=== PATIENT | male | born 1980 | race Caucasian/White ===

== ENCOUNTER 2016-05-30 01:59 | Emergency (ER) | payer BC ==
[~2016-05-30] VITALS: Ht 170.2 cm; Wt 82.0 kg
[~2016-05-30 01:59] MED LIST: BACT800T5 PO
[2016-05-30 02:01] VITALS: BP 157/93; PULSE 95; RESP 15; TEMP 97.8; O2SAT 98
[2016-05-30] MEDS ORDERED: NOVORP2 SQ (02:22)
[2016-05-30] MEDS ORDERED: NOVONP2 SQ (02:22)
[2016-05-30] MEDS ORDERED: AMAR2TAB PO (02:29)
[2016-05-30] MEDS ORDERED: SODIUM CHLOR 0.9% 1000 ML INJ 1,000 ML IV ONE (02:45)
--- NOTE | 2016-05-30 03:07 | PD ---
HPI Chief Complaint: Diabetic Time Seen by Provider: 02:22 Travel History International Travel<30 days: No Contact w/Intl Traveler<30days: No Traveled to known affect area: No History of Present Illness HPI 35-year-old male presents emergency department complaining of abdominal pain. He states cramping really started today. His a history of abdominal cramping in the past. Symptoms are almost daily for him. He seen a doctor couple times one in the past. The symptoms were worse today. He's had fevers and chills with it. He's had nausea but no vomiting. No change in his bowel movements. No urinary changes. No history of abdominal surgery. Medical history significant diabetes and hypertension. He also actively uses IV drugs, heroin, methamphetamine, and cocaine. History Past Medical History Tetanus Vaccination: < 5 Years Social History Alcohol Use: Yes (rare) Tobacco Use: Yes (1ppd) Allergies-Medications (Allergen,Severity, Reaction): Coded Allergies: No Known Allergies (Unverified , 05/30/16) Reported Meds & Prescriptions Reported Meds & Active Scripts Active Reported Amaryl (Glimepiride) 2 Mg Tab 2 Mg PO BIDAC Novolin R Inj (Insulin Human Regular) 1,000 Unit/10 Ml Vial 2-12 Units SQ ACHS Max dose at bedtime:( )units; sugars less than 70,(0) units; sugars 150-199,(2)unit; sugars 200-249,(4)units; sugars 250-299,(7) units; sugars 300-349,(10)units; sugars greater than 349,(12)units Novolin N Inj (Insulin Human NPH) 1,000 Unit/10 Ml Vial 30 Units SQ BID Review of Systems Except as stated in HPI: all other systems reviewed are Neg Physical Exam Narrative GENERAL: Well-appearing 35 year-old man, no acute distress. SKIN: Focused skin assessment warm/dry. HEAD: Atraumatic. Normocephalic. EYES: Pupils equal and round. No scleral icterus. No injection or drainage. ENT: No nasal bleeding or discharge. Mucous membranes pink and moist. NECK: Trachea midline. No JVD. CARDIOVASCULAR: Regular rate and rhythm. No murmur appreciated. RESPIRATORY: No accessory muscle use. Clear to auscultation. Breath sounds equal bilaterally. GASTROINTESTINAL: Abdomen is flat and soft. He is a little bit of diffuse tenderness especially in the right. A little bit of guarding but no rebound. No peritonitis. Negative Stanley's. Liver feels like maybe a little bit enlarged but the liver edge is clearly palpable. MUSCULOSKELETAL: No obvious deformities. No edema. Data Data Last Documented VS Vital Signs Date Time Temp Pulse Resp B/P Pulse Ox O2 Delivery O2 Flow Rate FiO2 05/30/16 02:26 99 Room Air 05/30/16 02:01 97.8 95 15 157/93 Orders Complete Blood Count With Diff (05/30/16 02:39) Comprehensive Metabolic Panel (05/30/16 02:39) Lipase (05/30/16 02:39) Iv Access Insert/Monitor (05/30/16 02:39) Sodium Chlor 0.9% 1000 Ml Inj (Ns 1000 M (05/30/16 02:45) Blood Culture (05/30/16 02:39) Ct Abd/Pel W Iv Contrast(Rout) (05/30/16 ) Iohexol 350 Inj (Omnipaque 350 Inj) (05/30/16 04:35) Labs Laboratory Tests Test 05/30/16 03:50 White Blood Count 10.1 TH/MM3 Red Blood Count 4.85 MIL/MM3 Hemoglobin 14.6 GM/DL Hematocrit 41.7 % Mean Corpuscular Volume 86.0 FL Mean Corpuscular Hemoglobin 30.2 PG Mean Corpuscular Hemoglobin 35.1 % Concent Red Cell Distribution Width 13.1 % Platelet Count 246 TH/MM3 Mean Platelet Volume 9.6 FL Neutrophils (%) (Auto) 60.7 % Lymphocytes (%) (Auto) 25.8 % Monocytes (%) (Auto) 11.2 % Eosinophils (%) (Auto) 1.1 % Basophils (%) (Auto) 1.2 % Neutrophils # (Auto) 6.1 TH/MM3 Lymphocytes # (Auto) 2.6 TH/MM3 Monocytes # (Auto) 1.1 TH/MM3 Eosinophils # (Auto) 0.1 TH/MM3 Basophils # (Auto) 0.1 TH/MM3 CBC Comment DIFF FINAL Differential Comment Sodium Level 140 MEQ/L Potassium Level 3.6 MEQ/L Chloride Level 104 MEQ/L Carbon Dioxide Level 26.9 MEQ/L Anion Gap 9 MEQ/L Blood Urea Nitrogen 16 MG/DL Creatinine 0.92 MG/DL Estimat Glomerular Filtration 93 ML/MIN Rate Random Glucose 203 MG/DL Calcium Level 9.3 MG/DL Total Bilirubin 0.6 MG/DL Aspartate Amino Transf 12 U/L (AST/SGOT) Alanine Aminotransferase 20 U/L (ALT/SGPT) Alkaline Phosphatase 116 U/L Total Protein 7.8 GM/DL Albumin 4.1 GM/DL Lipase 467 U/L [facility] Medical Decision Making Medical Screen Exam Complete: Yes Emergency Medical Condition: Yes Interpretation(s) LABS: CBC is unremarkable. CMP remarkable for a glucose of [address] abdomen and pelvis: No definite acute abnormality seen. Mild compression deformity of T12, appears chronic. Differential Diagnosis Abdominal pain, vomiting, gastroparesis, hepatobiliary disease, pancreatitis, other Narrative Course Medical decision making INITIAL: This Is a 35-year-old man who presents to the emergency department complaining of Abdominal pain. He states his abdominal pain daily, especially when he eats too much that suggests gastritis or gastroparesis. He looks overall well. Does have some diffuse tenderness. He is actively using IV drugs was complaining of night sweats. He states is been ongoing for years. I don't see any other evidence of endocarditis. Vital signs are unremarkable. We 'll check labs, CT imaging, likely discharge. Diagnosis Primary Impression: Abdominal pain Additional Instructions: Take Reglan 30 minutes prior to meals for the next 2 weeks. Follow-up with your primary doctor in the next 2-3 days. Return to the emergency department in worsening abdominal pain, vomiting, or any other new or worsening symptoms. Med/Other Pt SpecificInfo: Prescription(s) given Scripts Metoclopramide (Reglan)10 Mg Tab10 Mg PO TIDAC #60 TAB Ref 0 Prov:Greg Eid MD 05/30/16 Disposition: 01 DISCHARGE HOME Condition: Stable Greg Eid MD May 30, 2016 03:07
[2016-05-30 03:58] LABS: AUTOMATED NEUTROPHIL # 6.1 TH/MM3 (1.8-7.7); BASOPHIL # 0.1 TH/MM3 (0-0.2); BASOPHIL % 1.2 % (0.0-2.0); EOSINOPHIL # 0.1 TH/MM3 (0-0.4); EOSINOPHIL % 1.1 % (0.0-4.0); HEMATOCRIT 41.7 % (39.0-51.0); HEMO FLAGS DIFF FINAL; LYMPH % 25.8 % (9.0-44.0); LYMPHOCYTE # 2.6 TH/MM3 (1.0-4.8); MEAN CORPUSCULAR HEMOGLOBIN 30.2 PG (27.0-34.0); MEAN CORPUSCULAR HGB CONC 35.1 % (32.0-36.0); MONO % 11.2 % (0.0-8.0); NEUT % 60.7 % (16.0-70.0); PLATELET COUNT 246 TH/MM3 (150-450); RED BLOOD COUNT 4.85 MIL/MM3 (4.50-5.90); RED CELL DISTRIBUTION WIDTH 13.1 % (11.6-17.2); WHITE BLOOD COUNT 10.1 TH/MM3 (4.0-11.0)
[2016-05-30 04:24] LABS: ALT (GPT) 20 U/L (12-78); ANION GAP 9 MEQ/L (5-15); AST (GOT) 12 U/L (15-37); BICARBONATE 26.9 MEQ/L (21.0-32.0); BLOOD UREA NITROGEN 16 MG/DL (7-18); CHLORIDE 104 MEQ/L (98-107); GLOMERULAR FILTRATION RATE 93 ML/MIN (>89); POTASSIUM 3.6 MEQ/L (3.5-5.1); SODIUM (NA) 140 MEQ/L (136-145)
[2016-05-30 04:26] LABS: ALKALINE PHOSPHATASE 116 U/L (45-117); TOTAL BILIRUBIN ADULT 0.6 MG/DL (0.2-1.0)
[2016-05-30] MEDS ORDERED: IOHEXOL 350 MG/ML 10 ML VIAL (for RAD DIAG) IV ONE (04:35)
--- NOTE | 2016-05-30 05:04 | RADRPT ---
EXAM DATE/TIME: 05/30/2016 04:30 [facility] COMPARISON: No previous studies available for comparison. INDICATIONS : Abdominal pain. IV CONTRAST: 100 cc Omnipaque 350 (iohexol) IV ORAL CONTRAST: No oral contrast ingested. RADIATION DOSE: 6.83 CTDIvol (mGy) MEDICAL HISTORY : Diabetes mellitus type 2. Hypertension. SURGICAL HISTORY : None. ENCOUNTER: Initial ACUITY: 1 day PAIN SCALE: 5/10 LOCATION: abdomen TECHNIQUE: Volumetric scanning of the abdomen and pelvis was performed. Using automated exposure control and ad justment of the mA and/or kV according to patient size, radiation dose was kept as low as reasonably achievable to obtain optimal diagnostic quality images. FINDINGS: LOWER LUNGS: The visualized lower lungs are clear. LIVER: Homogeneous density without lesion. There is no dilation of the biliary tree. No calcified gallston es. SPLEEN: Normal size without lesion. PANCREAS: Within normal limits. KIDNEYS: Normal in size and shape. There is no mass, stone or hydronephrosis. ADRENAL GLANDS: Within normal limits. VASCULAR: There is no aortic aneurysm. BOWEL/MESENTERY: The stomach, small bowel, and colon demonstrate no acute abnormality. There is no free intraperitone al air or fluid. ABDOMINAL WALL: Within normal limits. RETROPERITONEUM: There is no lymphadenopathy. BLADDER: No wall thickening or mass. REPRODUCTIVE: Within normal limits. INGUINAL: There is no lymphadenopathy or hernia. MUSCULOSKELETAL: There is a deformity at the anterior superior aspect of the T12 vertebral body likely from prior frac ture. There is surgical hardware at the right femoral shaft. CONCLUSION: 1. No definite acute abnormalities seen. 2. Mild compression deformity of the anterior super aspect of T12 which appears chronic. Yoav Mcgraw MD on May 30, 2016 at 4:58 Board Certified Radiologist. This report was verified electronically.
[2016-05-30] MEDS ORDERED: REGL10TA5 PO (05:11)
== END 2016-05-30 05:34 | disposition home or self-care (01) ==
LOC: NEPE 01:59
DX: R10.9 Unspecified abdominal pain (principal); R11.0 Nausea; I10 Essential (primary) hypertension; E11.9 Type 2 diabetes mellitus without complications; F17.210 Nicotine dependence, cigarettes, uncomplicated
CPT/HCPCS: 74177; 80053; 83690; 85025; 87040; 96360; 99284; J7030; Q9967